=== PATIENT | female | born 1990 | race African-American/Black ===

== ENCOUNTER 2017-07-09 10:28 | Observation (INO) | payer MEDICAID ==
[~2017-07-09] VITALS: Ht 167.6 cm; Wt 96.2 kg
[~2017-07-09 10:28] MED LIST: MAGN400T27 PO; NIFE30TA94 PO
[2017-07-09] MEDS ORDERED: PNV1TABL76 PO (11:29)
[2017-07-09] MEDS ORDERED: BETAMETHASONE ACET/BETAMET 30 MG/5 ML VIAL IM NR (11:30)
[2017-07-10] MEDS ORDERED: BETAMETHASONE ACET/BETAMET 30 MG/5 ML VIAL IM NR (11:30)
== END 2017-07-09 12:15 | disposition home or self-care (01) ==
LOC: L&D 10:28
PROVIDERS: ADMIT Acupuncturist; ATTEND Acupuncturist
DX: O36.0130 Maternal care for anti-D [Rh] antibodies, third trimester, not applicable or unspecified (principal); Z3A.34 34 weeks gestation of pregnancy
CPT/HCPCS: 59025; 96372; G0378; J0702; 99281

== ENCOUNTER 2017-07-10 11:44 | Observation (INO) | payer MEDICAID ==
[~2017-07-10] VITALS: Ht 170.2 cm; Wt 96.2 kg
[~2017-07-10 11:44] MED LIST changes: +PNV1TABL76 PO
[2017-07-10] MEDS ORDERED: BETAMETHASONE ACET/BETAMET 30 MG/5 ML VIAL IM SCH (12:00)
== END 2017-07-10 12:12 | disposition home or self-care (01) ==
LOC: L&D 11:44
PROVIDERS: ADMIT Acupuncturist; ATTEND Acupuncturist
DX: Z34.93 Encounter for supervision of normal pregnancy, unspecified, third trimester (principal)
CPT/HCPCS: 96372; 99281; G0378

== ENCOUNTER 2017-07-16 09:50 | Observation (INO) | payer MEDICAID ==
[~2017-07-16] VITALS: Ht 167.6 cm; Wt 96.2 kg
[~2017-07-16 09:50] MED LIST changes: -NIFE30TA94 PO
== END 2017-07-16 11:05 | disposition home or self-care (01) ==
LOC: L&D 09:50
PROVIDERS: ADMIT Obstetrics & Gynecology; ATTEND Obstetrics & Gynecology
DX: O26.893 Other specified pregnancy related conditions, third trimester (principal); R10.9 Unspecified abdominal pain; M54.9 Dorsalgia, unspecified; R10.2 Pelvic and perineal pain; Z3A.35 35 weeks gestation of pregnancy
CPT/HCPCS: 99281; G0378

== ENCOUNTER 2023-04-17 17:03 | Emergency (ER) | payer MEDICAID ==
[~2023-04-17] VITALS: Ht 170.2 cm; Wt 105.0 kg
[~2023-04-17 17:03] MED LIST changes: -MAGN400T27 PO; +MAGN400T55 PO
[2023-04-17 17:38] VITALS: TEMP 98.6; O2SAT 99
[2023-04-17 18:09] LABS: BASOPHILS % 0.5 % (0.0-2.0); EOSINOPHILS % 1.3 % (0.0-5.0); HEMATOCRIT. 40.7 % (36.0-48.0); HEMOGLOBIN. 13.7 g/dL (12.0-16.0); LYMPHOCYTES % 30.4 % (20.0-50.0); MEAN CORPUSCULAR HEMOGLOBIN 30.7 pg (28.0-32.0); MEAN CORPUSCULAR VOLUME 91.5 fL (81.0-99.0); MEAN PLATELET VOLUME 6.7 fl (7.4-10.4); MONOCYTES % 5.8 % (2.0-8.0); PLATELET 317 x1000/uL (130-400); RED BLOOD CELL COUNT 4.45 mill/uL (4.2-5.4); RED CELL DISTRIBUTION WIDTH 14.1 % (11.6-14.6)
[2023-04-17 18:17] LABS: CHLORIDE 103 mEq/L (98-107)
[2023-04-17] MEDS ORDERED: DIPHENHYDRAMINE 50MG CAPSULE PO ONE (19:15)
[2023-04-17] MEDS ORDERED: IBUPROFEN 400MG TABLET PO ONE (19:15)
[2023-04-17] MEDS ORDERED: FAMOTIDINE 20MG TABLET PO ONE (19:15)
[2023-04-17 20:18] VITALS: BP 150/80; PULSE 80; RESP 18
[2023-04-17 20:31] LABS: CLARITY URINE CLOUDY (CLEAR); COLOR URINE YELLOW (YELLOW); KETONES URINE NEGATIVE (NEGATIVE); LEUKOCYTE ESTERASE URINE 3+ (NEGATIVE); NITRITE URINE NEGATIVE (NEGATIVE); OCCULT BLOOD URINE 2+ (NEGATIVE); PH URINE 5.5 (4.5-8.0); PROTEIN URINE NEGATIVE (NEGATIVE); SPECIFIC GRAVITY URINE 1.021 (1.005-1.030); UROBILINOGEN URINE 0.2 E.U./dL (0.2-1.0)
== END 2023-04-17 20:20 | disposition home or self-care (01) ==
LOC: ER 17:03
DX: L29.9 Pruritus, unspecified (principal); R07.81 Pleurodynia
CPT/HCPCS: 36415; 71045; 80053; 81003; 81025; 85025; 93005; 99285; Q0163